=== PATIENT | female | born 2000 | race African-American/Black ===

== ENCOUNTER 2024-08-13 06:13 | Outpatient (REF) | payer OTHER, SELFPAY ==
--- NOTE | ~2024-08-13 | US_ITS ---
EXAMINATION: US PELVIS TRANSABDOMINAL AND TRANSVAGINAL HISTORY: CRAMPING AFTER IUD INSERTION 3 WEEKS AGO COMPARISON: There are no prior studies for comparison. TECHNIQUE: Transabdominal and endovaginal real-time 2D nur-scale ultrasound was performed. Color Doppler was also performed. FINDINGS: Uterus: The uterus is normal in size, measuring 7.5 x 4.1 x 5.3 cm. Myometrium has a normal echotexture. No fibroids are identified. Endometrium: The endometrial stripe measures 11 mm in thickness. An IUD is noted in the expected position in the endometrial cavity. Right ovary: The right ovary measures 2.0 x 1.5 x 1.2 cm. The right ovary is normal in size and echotexture. There is a 1.1 cm follicle. Left ovary: The left ovary measures 2.5 x 1.8 x 3.5 cm. The left ovary is normal in size and echotexture. Pelvic fluid: none. US/US pelvic and transvaginal IMPRESSION: IUD in the expected position. Unremarkable pelvic ultrasound. Electronically signed by: Figueroa Stratton MD 08/13/2024 09:58 AM EST
== END 2024-08-13 06:14 | disposition home or self-care (01) ==
LOC: HO.UMASIMG 06:13
PROVIDERS: Visit Provider Nurse Practitioner Women's Health
DX: Z30.431 Encounter for routine checking of intrauterine contraceptive device (principal)
CPT/HCPCS: 76830; 76856

== ENCOUNTER → 2024-08-13 08:30 | Outpatient (BNV) | payer OTHER, SELFPAY | PROVIDERS: Visit Provider Radiology Diagnostic Radiology | DX: T83.84XA Pain due to genitourinary prosthetic devices, implants and grafts, initial encounter (principal) | CPT/HCPCS: 76830; 76856 ==